=== PATIENT | male | born 1975 | race Caucasian/White ===

== ENCOUNTER 2022-04-09 05:37 | Day surgery (SDC) | payer OTHER, SELFPAY ==
[2022-04-05 12:14] LABS: SARS-CoV-2 Antigen Rapid Res Negative (Negative)
[2022-04-05 12:32] LABS: Hematocrit 48.4 % (39.6-49.0); MCV 88.6 fL (80-100); MPV 9.2 fL (7.6-11.3); RBC Red Blood Cell Count 5.46 M/uL (4.33-5.43)
--- NOTE | 2022-04-06 06:22 | EKG ---
Test Date: 2022-04-05 Test Time: 11:39:51 Snout Puller: MART MEASUREMENT RESULTS: Intervals: Rate: 67 [place]: 138 QRSD: 84 QT: 422 QTc: 445 [place]: P: 52 AZ: 138 QRS: 9 T: 32 INTERPRETIVE STATEMENTS: Normal sinus rhythm Normal ECG No previous ECG available for comparison Electronically Signed On 04-06-22 06:21:47 CDT by Erick Espinoza
[2022-04-09] MEDS ORDERED: Ringers Lactate 1,000 ML IV ONE (05:49)
[2022-04-09] MEDS ORDERED: CEFAZOLIN 2 GM IN 0.9% NACL 2 GM/100 ML BAG ONE (05:50)
[2022-04-09] MEDS ORDERED: dexAMETHasone 10 MG/ML VIAL ONE ×2 (06:41→07:29)
[2022-04-09] MEDS ORDERED: MIDAZOLAM HCL 2 MG/2 ML INJ ONE (06:41)
[2022-04-09] MEDS ORDERED: LIDOCAINE 1% MPF 5 ML VIAL ONE (06:41)
[2022-04-09] MEDS ORDERED: FENTANYL CITR 100 MCG/2 ML ONE (06:41)
[2022-04-09] MEDS ORDERED: ROPIVACAINE HCL 20 ML ONE (06:42)
[2022-04-09] MEDS ORDERED: ROPLVACAINE HCL 20 ML ONE (06:42)
[2022-04-09] MEDS ORDERED: EPINEPHRINE/PF 1 MG/ML AMP ONE (06:43)
[2022-04-09] MEDS ORDERED: BUPIVACA 0.5%/EPI 0.0005%/PF 30 ML VIAL ONE (06:59)
[2022-04-09] MEDS ORDERED: propofoL 200 MG/20 ML VIAL IV ONE (07:17)
[2022-04-09] MEDS ORDERED: LIDOCAINE 2% MPF 5 ML VIAL ONE (07:18)
[2022-04-09] MEDS ORDERED: KETOROLAC 30 MG/ML INJ ONE (07:30)
[2022-04-09] MEDS ORDERED: ONDANSETRON 4 MG/2 ML VIAL ONE (07:32)
[2022-04-09 11:18] VITALS: BP 118/84; TEMP 97.1; O2SAT 98
--- NOTE | 2022-04-09 20:32 | OP ---
Date of Procedure: 04/09/2022 Surgeon: Dominguez Marmolejo MD Preoperative Diagnosis: Left knee pain with mechanical symptoms, probable meniscal tear and anterior cruciate ligament disruption. Postoperative Diagnoses: 1.Anterior cruciate ligament disruption. 2.Tear of medial meniscus. Procedure: Left knee medial meniscal debridement with Achilles allograft, anterior cruciate reconstr uction. Estimated Blood Loss: 10 cc. Complications: There were no complications. Specimens: No pathology specimen sent. Indications For Operation: Mr. Sanon is a 46-year-old male who unfortunately injured his left knee. He came to see me in my office after having an MRI, which demonstrated an ACL tear as well as a med ial meniscal tear. He had continued pain and problems. At the time he saw me, he really could not b ear any weight on it and it was very stiff, so he was sent to physical therapy where he vastly improv ed with range of motion, however, still had complaints of instability and pain. Risks, benefits, and alternatives of different methods of treating this have been discussed with the patient including fu rther conservative care or operative intervention. He understands everything as presented including the long period of rehabilitation and opts for ACL reconstruction with meniscal work. All his questi ons were answered and he agrees to proceed. Description Of Procedure: Patient was taken to the operating room and placed in supine position. Ge neral anesthesia was obtained by staff. Following this, a well-padded tourniquet was placed on super ior left thigh. Left lower extremity was then prepped and draped in usual sterile fashion for proced ure. Following this, standard superomedial arthroscopy portal was then made with liberation of appro ximately 20 cc of rather normal-appearing synovial fluid. This was followed by placement of inferola teral arthroscopy portal and the camera was then placed in the knee atraumatically with 1 pass. The knee was then sequentially examined including suprapatellar pouch, medial and lateral gutters, medial and lateral compartments as well as the notch and patellofemoral joint. Pertinent findings included ACL disruption as well as what appeared to be a portion of the medial meniscus with the notch. The medial meniscus itself appeared to be somewhat better than normal. A medial arthroscopy portal was t hen made and the medial meniscus was probed throughout its course. There appeared to have this displ aced area within the notch. The anterior cruciate ligament stump was then debrided as well as soft t issues as well as removal of the torn portion of the medial meniscus. Attention was turned also to t he lateral side, which appeared to be free from significant pathology. After this was prepped, the g raft which was previously incised to a 9 was then placed in standard fashion using the Arthrex ____ through the tibia and the back wall guide was used for the Beath pin. The femur was then reamed to 30 and the graft was then placed and appeared to seat well. The femoral tunnel was then notched and tapped using a size 7. Size 7 screw was selected and placed, appears to have good bite and good hold. Attention was then turned to the tibia and a size 9 bioabsorbable screw was then placed in sta ndard fashion and appears to hold well. While in tension, the knee was brought through range of alberto on. It comes to full extension. Previous anterior drawer, which was done prior to the operation, no w appears to be corrected. The stump of the ACL graft is resected and the arthroscopy portals were t hen closed using Vicryl for the medial incision and josette at the other 3. The patient was then taylor andra in extremely well-padded sterile dressing, awakened and taken to recovery room in good condition. No complications. SE/MODL Voice ID: [id number] Report ID: [id number]
== END 2022-04-09 10:50 | disposition home or self-care (01) ==
LOC: OR 05:37
PROVIDERS: ATTEND Orthopaedic Surgery
PROC: 0MRP4KZ Replacement of Left Knee Bursa and Ligament with Nonautologous Tissue Substitute, Percutaneous Endoscopic Approach (ICD-10-PCS; principal; 2022-04-09 07:00)
DX: S83.512A Sprain of anterior cruciate ligament of left knee, initial encounter (principal); S83.242A Other tear of medial meniscus, current injury, left knee, initial encounter; Z20.822 Contact with and (suspected) exposure to COVID-19
CPT/HCPCS: 29888; 93005; 85025; 80048; 36415; 87811; J2704; J0171; J2250; J3010; J1100 ×2; J2795; J0690; J7120; J2405